=== PATIENT | female | born 1965 | race Caucasian/White ===

== ENCOUNTER → 2023-10-24 13:34 | Outpatient (REF) | payer BC, SELFPAY | LOC: WDC 13:34 | PROVIDERS: ATTENDING PHYSICIAN Obstetrics & Gynecology; FAMILY PHYSICIAN Family Medicine | DX: Z13.820 Encounter for screening for osteoporosis (principal); Z12.31 Encounter for screening mammogram for malignant neoplasm of breast | CPT/HCPCS: 77063; 77067; 77080 ==

== ENCOUNTER → 2023-10-27 13:58 | Outpatient (REF) | payer BC, SELFPAY | LOC: RAD 13:58 | PROVIDERS: ATTENDING PHYSICIAN Obstetrics & Gynecology; FAMILY PHYSICIAN Family Medicine | DX: R10.2 Pelvic and perineal pain (principal) | CPT/HCPCS: 76830; 76856 ==